=== PATIENT | male | born 1970 | race Caucasian/White ===

== ENCOUNTER 2017-06-22 17:32 | Emergency (ER) | payer SELFPAY ==
[~2017-06-22] VITALS: Ht 165.1 cm; Wt 90.7 kg
[2017-06-22 17:32] VITALS: BP_SYST 159
[2017-06-22] MEDS ORDERED: methylPREDNISolone SOD SUCC/PF 62.5 MG/ML VIAL IM ONE (18:00)
[2017-06-22] MEDS ORDERED: IPRATROPIUM/ALBUTEROL SULFATE 3 ML AMPUL.NEB INH ONE (18:00)
[2017-06-22 19:10] VITALS: BP_SYST 148
== END 2017-06-22 19:10 | disposition home or self-care (01) ==
LOC: SED 17:32
DX: T59.4X1A Toxic effect of chlorine gas, accidental (unintentional), initial encounter (principal); R06.02 Shortness of breath; Y92.89 Other specified places as the place of occurrence of the external cause
CPT/HCPCS: 71020; 94640; 96372; 99284; J2930

== ENCOUNTER 2018-11-28 10:29 | Emergency (ER) | payer OTHER ==
[~2018-11-28] VITALS: Ht 165.1 cm; Wt 91.6 kg
[2018-11-28 10:35] VITALS: BP_SYST 157
--- NOTE | 2018-11-28 10:42 | NUR ---
Patient to ER bed 7 to gown for evaluation. Side rails up. Report given to Luis Carlos BINGHAM.
--- NOTE | 2018-11-28 11:00 | NUR ---
Pt presents to ED c/o intermittent blurred vision and h/o ETOH abuse, pt reports problem is chronic.
--- NOTE | 2018-11-28 11:13 | NUR ---
Patient transported to radiology via WC, accompanied by rad staff.
--- NOTE | 2018-11-28 11:20 | NUR ---
Returned from radiology, back to [facility].
--- NOTE | 2018-11-28 11:30 | NUR ---
Qasim bro in [facility] - 11/28/18 at 1515 by MANUEL Returned from radiology, back to [facility].
[2018-11-28 11:35] LABS: BASOPHILS % (AUTO) 0.5 % (0.0-2.0); EOSINOPHILS # (AUTO) 0.2 K/uL (0.0-0.4); EOSINOPHILS % (AUTO) 3.5 % (0.0-4.0); HEMATOCRIT 46.3 % (36-54); HEMOGLOBIN 15.9 g/dL (14.0-18.0); LYMPHOCYTES # (AUTO) 1.9 K/uL (1.0-5.5); LYMPHOCYTES % (AUTO) 28.7 % (20.5-51.5); MEAN CORPUSCULAR HEMOGLOBIN 32 pg (27-31); MEAN CORPUSCULAR HGB CONC 35 % (32-36); MEAN CORPUSCULAR VOLUME 93 fL (79.0-98.0); MONOCYTES # (AUTO) 0.5 K/uL (0.0-1.0); MONOCYTES % (AUTO) 8.4 % (1.7-9.3); NEUTROPHILS # (AUTO) 3.9 K/uL (1.8-7.7); NEUTROPHILS % (AUTO) 58.9 % (40.0-70.0); PLATELET COUNT (AUTO) 221 K/uL (130-430); RED BLOOD CELL COUNT(AUTO) 4.99 MIL/uL (4.2-6.2); RED CELL DISTRIBUTION WIDTH 12.1 % (9.0-15.0); WHITE BLOOD COUNT (AUTO) 6.5 K/uL (4.8-10.8)
[2018-11-28 12:25] LABS: CALCIUM 9.4 mg/dL (8.4-11.0); CREATININE 0.93 mg/dL (0.55-1.30); POTASSIUM 3.6 mmol/L (3.5-5.1)
[2018-11-28 13:10] VITALS: BP_SYST 131
--- NOTE | 2018-11-28 13:10 | NUR ---
Patient given written and verbal discharge instructions and verbalizes understanding. ER MD discussed with patient the results and treatment provided. Patient in stable condition. ID arm band removed. Rx of Thiamine, Librium given. Patient educated on pain management and to follow up with PMD. Pain Scale 0/10. Discussed at length strategies to stop drinking ETOH, how to use Librium including that ETOH cessation is necessary prior to and during use of Librium. Patient was strongly encouraged to contact his AA sponsore, go to meetings durig detox and attempt to take it easy for the next few days. Opportunity for questions provided and answered. Medication side effect fact sheet provided.
== END 2018-11-28 13:10 | disposition home or self-care (01) ==
LOC: SED 10:29
DX: H53.8 Other visual disturbances (principal); I10 Essential (primary) hypertension
CPT/HCPCS: 36415; 70450-TC; 80048; 85025; 99284

== ENCOUNTER 2019-02-01 18:53 | Emergency (ER) | payer OTHER ==
[~2019-02-01] VITALS: Ht 165.1 cm; Wt 90.7 kg
[2019-02-01 19:00] VITALS: BP_SYST 100
[2019-02-01 19:42] LABS: BILIRUBIN,URINE NEGATIVE (NEGATIVE); BLOOD, URINE NEGATIVE (NEGATIVE); CLARITY/URINE SL CLOUDY (CLEAR); COLOR,URINE YELLOW (YELLOW); GLUCOSE,URINE NEGATIVE (NEGATIVE); KETONES,URINE NEGATIVE (NEGATIVE); LEUKOCYTE ESTERASE ,URINE NEGATIVE (NEGATIVE); NITRITE, URINE NEGATIVE (NEGATIVE); PH,URINE 6.5 (5.0-8.0); PROTEIN URINE NEGATIVE (NEGATIVE); UROBILINOGEN,URINE 0.2 (0.2-1.0)
[2019-02-01 20:48] LABS: BASOPHILS # (AUTO) 0.1 K/uL (0.0-0.2); BASOPHILS % (AUTO) 0.8 % (0.0-2.0); EOSINOPHILS # (AUTO) 0.3 K/uL (0.0-0.4); EOSINOPHILS % (AUTO) 2.9 % (0.0-4.0); HEMATOCRIT 43.2 % (36-54); LYMPHOCYTES # (AUTO) 2.1 K/uL (1.0-5.5); MEAN CORPUSCULAR HEMOGLOBIN 33 pg (27-31); MEAN CORPUSCULAR HGB CONC 35 % (32-36); MEAN CORPUSCULAR VOLUME 95 fL (79.0-98.0); MONOCYTES # (AUTO) 0.7 K/uL (0.0-1.0); MONOCYTES % (AUTO) 7.6 % (1.7-9.3); NEUTROPHILS # (AUTO) 5.9 K/uL (1.8-7.7); NEUTROPHILS % (AUTO) 65.7 % (40.0-70.0); PLATELET COUNT (AUTO) 186 K/uL (130-430); RED BLOOD CELL COUNT(AUTO) 4.56 MIL/uL (4.2-6.2); WHITE BLOOD COUNT (AUTO) 8.9 K/uL (4.8-10.8)
[2019-02-01 20:55] LABS: CALCIUM 9.6 mg/dL (8.4-11.0); CREATININE 1.02 mg/dL (0.55-1.30); POTASSIUM 3.9 mmol/L (3.5-5.1)
[2019-02-01 21:00] LABS: ALBUMIN 3.8 g/dL (3.4-4.8); TOTAL BILIRUBIN 0.9 mg/dL (0.0-1.0)
[2019-02-01] MEDS ORDERED: ONDANSETRON HCL 4 MG/2 ML VIAL IVP ONE (21:00)
[2019-02-01] MEDS ORDERED: MORPHINE 4 MG/ML INJ. SYRINGE IVP ONE ×2 (21:00→22:45)
[2019-02-01] MEDS ORDERED: NACL 0.9% 1,000 ML IV ONE (22:45)
[2019-02-01 23:21] VITALS: BP_SYST 131
== END 2019-02-01 23:21 | disposition home or self-care (01) ==
LOC: SED 18:53
DX: E86.0 Dehydration (principal); K85.90 Acute pancreatitis without necrosis or infection, unspecified; K59.00 Constipation, unspecified; F10.10 Alcohol abuse, uncomplicated; I10 Essential (primary) hypertension
CPT/HCPCS: 36415; 74018; 80053; 81003; 83690; 85025; 96361; 96374; 96375; 96376; 99284; J2270; J2405; J7030

== ENCOUNTER 2019-02-02 11:17 | Emergency (ER) | payer OTHER ==
[~2019-02-02] VITALS: Ht 165.1 cm; Wt 90.7 kg
[2019-02-02 11:20] VITALS: BP_SYST 143
[2019-02-02] MEDS ORDERED: ONDANSETRON 4 MG ODT TAB PO ONE (12:30)
[2019-02-02] MEDS ORDERED: KETOROLAC TROMETHAMINE 30 MG VIAL IVP ONE (12:30)
[2019-02-02 12:37] LABS: BASOPHILS # (AUTO) 0.1 K/uL (0.0-0.2); BASOPHILS % (AUTO) 0.5 % (0.0-2.0); EOSINOPHILS # (AUTO) 0.1 K/uL (0.0-0.4); EOSINOPHILS % (AUTO) 1.3 % (0.0-4.0); HEMATOCRIT 43.4 % (36-54); HEMOGLOBIN 15.1 g/dL (14.0-18.0); LYMPHOCYTES # (AUTO) 1.7 K/uL (1.0-5.5); LYMPHOCYTES % (AUTO) 16.7 % (20.5-51.5); MEAN CORPUSCULAR HEMOGLOBIN 33 pg (27-31); MEAN CORPUSCULAR HGB CONC 35 % (32-36); MEAN CORPUSCULAR VOLUME 95 fL (79.0-98.0); MONOCYTES % (AUTO) 9.2 % (1.7-9.3); NEUTROPHILS # (AUTO) 7.5 K/uL (1.8-7.7); NEUTROPHILS % (AUTO) 72.3 % (40.0-70.0); PLATELET COUNT (AUTO) 176 K/uL (130-430); RED BLOOD CELL COUNT(AUTO) 4.57 MIL/uL (4.2-6.2); RED CELL DISTRIBUTION WIDTH 13.1 % (9.0-15.0); WHITE BLOOD COUNT (AUTO) 10.3 K/uL (4.8-10.8)
[2019-02-02 13:38] LABS: ALBUMIN 3.7 g/dL (3.4-4.8); CALCIUM 8.7 mg/dL (8.4-11.0); CREATININE 1.03 mg/dL (0.55-1.30); POTASSIUM 3.9 mmol/L (3.5-5.1); TOTAL BILIRUBIN 1.4 mg/dL (0.0-1.0)
[2019-02-02 14:50] VITALS: BP_SYST 143
== END 2019-02-02 14:50 | disposition home or self-care (01) ==
LOC: SED 11:17
DX: K85.90 Acute pancreatitis without necrosis or infection, unspecified (principal); I10 Essential (primary) hypertension
CPT/HCPCS: 36415; 76700; 80053; 83690; 85025; 96374; 99284; J1885; Q0162

== ENCOUNTER 2023-04-04 12:41 | Emergency (ER) | payer OTHER ==
[~2023-04-04] VITALS: Ht 165.1 cm; Wt 82.6 kg
[2023-04-04 12:45] VITALS: BP_SYST 132
--- NOTE | 2023-04-04 12:50 | NUR ---
Patient triaged and placed in waiting room. VSS and patient appears in no acute distress at this time. Accompanied by SELF, awaiting available bed, and MD notified of need for MSE.
--- NOTE | 2023-04-04 13:42 | NUR ---
DR GREENE OUT TO TRIAGE ROOM FOR EVALUATION
[2023-04-04] MEDS ORDERED: HYDC2.5% TP (13:57)
--- NOTE | 2023-04-04 14:10 | NUR ---
PT LEFT WITHOUT SIGNING PAPERWORK.
== END 2023-04-04 14:10 | disposition left against medical advice (07) ==
LOC: SED 12:41
DX: S61.212A Laceration without foreign body of right middle finger without damage to nail, initial encounter (principal); I10 Essential (primary) hypertension; Z87.2 Personal history of diseases of the skin and subcutaneous tissue; Z79.899 Other long term (current) drug therapy; X58.XXXA Exposure to other specified factors, initial encounter; Y93.89 Activity, other specified; Y92.89 Other specified places as the place of occurrence of the external cause; Y99.8 Other external cause status
CPT/HCPCS: 99282

== ENCOUNTER 2024-08-03 11:07 | Inpatient (IN) | payer OTHER ==
[~2024-08-03] VITALS: Ht 165.1 cm; Wt 91.2 kg
[2024-08-03 11:07] VITALS: BP_SYST 179; PULSE 91; RESP 18; TEMP 98; O2SAT 98
[~2024-08-03 11:07] MED LIST: HYDC2.5% TP
[2024-08-03 11:40] LABS: BASOPHILS # (AUTO) 0.1 K/uL (0.0-0.2); BASOPHILS % (AUTO) 1.1 % (0.0-2.0); EOSINOPHILS # (AUTO) 0.3 K/uL (0.0-0.4); EOSINOPHILS % (AUTO) 4.3 % (0.0-4.0); HEMOGLOBIN 15.2 g/dL (14.0-18.0); LYMPHOCYTES # (AUTO) 2.1 K/uL (1.0-5.5); LYMPHOCYTES % (AUTO) 33.3 % (20.5-51.5); MEAN CORPUSCULAR HEMOGLOBIN 33 pg (27-31); MEAN CORPUSCULAR HGB CONC 35 % (32-36); MEAN CORPUSCULAR VOLUME 95 fL (79.0-98.0); MONOCYTES # (AUTO) 0.5 K/uL (0.0-1.0); MONOCYTES % (AUTO) 7.8 % (1.7-9.3); NEUTROPHILS # (AUTO) 3.4 K/uL (1.8-7.7); NEUTROPHILS % (AUTO) 53.5 % (40.0-70.0); PLATELET COUNT (AUTO) 212 K/uL (130-430); RED BLOOD CELL COUNT(AUTO) 4.66 MIL/uL (4.2-6.2); WHITE BLOOD COUNT (AUTO) 6.3 K/uL (4.8-10.8)
[2024-08-03 11:50] LABS: PROTHROMBIN TIME 10.4 SECS (9.5-12.5)
[2024-08-03 11:53] LABS: ALANINE AMINOTRANSFERASE 62 U/L (12-78); ALBUMIN 4.2 g/dL (3.4-4.8); ANION GAP 10 (5-15); ASPARTATE AMINOTRANSFERASE 38 U/L (10-37); BILIRUBIN,DIRECT 0.3 mg/dL (0.0-0.3); CALCIUM 9.1 mg/dL (8.4-11.0); CARBON DIOXIDE 28 mmol/L (23-29); CHLORIDE 100 mmol/L (98-107); CREATINE KINASE, TOTAL 182 U/L (39-308); CREATININE 1.06 mg/dL (0.55-1.30); GFR AFRICAN AMERICAN 93 mL/min (>90); GLUCOSE 124 mg/dL (74-106); POTASSIUM 3.9 mmol/L (3.5-5.1); SODIUM SERUM 138 mmol/L (136-145); TOTAL BILIRUBIN 0.8 mg/dL (0.0-1.0); TOTAL PROTEIN, SERUM 7.6 g/dL (6.4-8.3); UREA NITROGEN, BLOOD 17 mg/dL (8-21)
[2024-08-03 11:54] LABS: ALCOHOL, BLOOD < 3 mg/dL (<10); GFR NON AFRICAN-AMERICAN 77 mL/min (>90)
[2024-08-03] MEDS: cloNIDine HCL 0.1 MG TABLET PO ONE ×2 (12:42→13:16)
[2024-08-03] MEDS: ASPIRIN 81 MG TAB.CHEW PO ONE (14:56)
[2024-08-03] MEDS: APIXABAN 2.5 MG TABLET PO ONE (15:02)
[2024-08-03] MEDS ORDERED: MORPHINE 2 MG/ML INJ. SYRINGE IVP PRN (17:30)
[2024-08-03] MEDS ORDERED: LORazepam 2 MG/ML VIAL IVP PRN (17:30)
[2024-08-03] MEDS ORDERED: HYDROcodone/ACETAMIN 5-325 MG TAB (NORCO/ VICODIN) PO PRN (17:30)
[2024-08-03] MEDS: NACL 0.9% 1,000 ML IV SCH (18:05)
[2024-08-03] MEDS ORDERED: APIXABAN 2.5 MG TABLET PO SCH (21:00)
[2024-08-03 22:18] VITALS: BP_SYST 138; PULSE 73; RESP 20; TEMP 98.6; O2SAT 98
[2024-08-03 23:00] VITALS: BP_SYST 138; PULSE 73; RESP 20; TEMP 98.6; O2SAT 98
[2024-08-04] MEDS: APIXABAN 2.5 MG TABLET PO ONE (00:11)
[2024-08-04 05:05] VITALS: BP_SYST 140; PULSE 63; RESP 16; TEMP 97.6; O2SAT 98
[2024-08-04 06:50] VITALS: BP_SYST 153; PULSE 96; RESP 20; TEMP 97.8; O2SAT 97
[2024-08-04 07:14] LABS: BASOPHILS # (AUTO) 0.1 K/uL (0.0-0.2); EOSINOPHILS # (AUTO) 0.4 K/uL (0.0-0.4); EOSINOPHILS % (AUTO) 5.5 % (0.0-4.0); HEMATOCRIT 43.7 % (36-54); LYMPHOCYTES # (AUTO) 2.3 K/uL (1.0-5.5); MEAN CORPUSCULAR HEMOGLOBIN 33 pg (27-31); MEAN CORPUSCULAR HGB CONC 34 % (32-36); MEAN CORPUSCULAR VOLUME 96 fL (79.0-98.0); MONOCYTES # (AUTO) 0.5 K/uL (0.0-1.0); MONOCYTES % (AUTO) 6.9 % (1.7-9.3); NEUTROPHILS # (AUTO) 3.5 K/uL (1.8-7.7); NEUTROPHILS % (AUTO) 52.6 % (40.0-70.0); PLATELET COUNT (AUTO) 194 K/uL (130-430); RED BLOOD CELL COUNT(AUTO) 4.57 MIL/uL (4.2-6.2); RED CELL DISTRIBUTION WIDTH 12.8 % (9.0-15.0); WHITE BLOOD COUNT (AUTO) 6.7 K/uL (4.8-10.8)
[2024-08-04 07:31] LABS: ALBUMIN 3.6 g/dL (3.4-4.8); CALCIUM 8.6 mg/dL (8.4-11.0); CREATININE 0.97 mg/dL (0.55-1.30); PHOSPHORUS 2.6 mg/dL (2.7-4.5); POTASSIUM 4.2 mmol/L (3.5-5.1); TOTAL BILIRUBIN 1.1 mg/dL (0.0-1.0); TOTAL PROTEIN, SERUM 6.7 g/dL (6.4-8.3)
[2024-08-04 08:00] VITALS: BP_SYST 145; PULSE 65; RESP 18; TEMP 97.6; O2SAT 99
[2024-08-04] MEDS: ATORVASTATIN 20 MG TABLET PO SCH (10:33)
[2024-08-04] MEDS: ASPIRIN 81 MG TAB.CHEW PO SCH (10:33)
[2024-08-04 12:00] VITALS: BP_SYST 150; PULSE 68; RESP 17; TEMP 97.5; O2SAT 98
[2024-08-04] MEDS: NAPH,MB-DB/K PH,MBDB 250 MG TAB PO ONE (14:30)
[2024-08-04] MEDS ORDERED: ASPI-1393 PO (14:43)
[2024-08-04 15:57] VITALS: BP_SYST 147; PULSE 78; RESP 16; TEMP 98; O2SAT 98
[2024-08-04 16:00] VITALS: BP_SYST 165; PULSE 74; RESP 16; TEMP 97.6; O2SAT 99
[2024-08-04] MEDS: hydrALAZINE HCL 10 MG TABLET PO ONE (16:21)
== END 2024-08-04 17:55 | disposition home or self-care (01) | DRG 69 ==
LOC: SED 11:07 → STU 17:28
PROVIDERS: ADMIT Student in an Organized Health Care Education/Training Program; ATTEND Student in an Organized Health Care Education/Training Program
DX: G45.9 Transient cerebral ischemic attack, unspecified (principal); G62.9 Polyneuropathy, unspecified; I10 Essential (primary) hypertension; Z20.822 Contact with and (suspected) exposure to COVID-19; E83.39 Other disorders of phosphorus metabolism; E78.00 Pure hypercholesterolemia, unspecified; R47.81 Slurred speech; I48.0 Paroxysmal atrial fibrillation; Z79.01 Long term (current) use of anticoagulants; Z83.3 Family history of diabetes mellitus; Z79.82 Long term (current) use of aspirin; Z79.899 Other long term (current) drug therapy
CPT/HCPCS: 36415; 70450-TC; 70496; 70498; 71045; 80048; 80053; 80076; 82550; 83735; 83880; 84100; 84484; 85025; 85610; 85730; 92610-GN; 93005; 93306; 93880; 99285; G0378; G0482; J7030